=== PATIENT | female | born 1995 | race Two or more races ===

== ENCOUNTER 2017-06-23 17:50 | Emergency (ER) | payer SELFPAY ==
[~2017-06-23] VITALS: Ht 154.9 cm; Wt 131.0 kg
[2017-06-23 18:54] VITALS: BP 135/75
[2017-06-23 19:25] LABS: HEMATOCRIT 34.7 % (36.0-46.0); HEMOGLOBIN 12.1 G/DL (11.9-15.5); MCH 33.2 PG (29.0-34.0); MCHC 34.9 G/DL (30.0-36.0); MCV 95.1 FL (83-99); PLATELET COUNT 264 K/uL (156-360); RBC DIS.WIDTH-SD 41.6 % (39-53); RED BLOOD COUNT 3.65 M/uL (3.80-5.20); WHITE BLOOD COUNT 10.4 K/uL (4.1-10.2)
[2017-06-23 19:39] LABS: ALBUMIN 3.5 g/dL (3.2-4.8)
[2017-06-23 19:40] LABS: CHLORIDE 106 mEq/L (99-109); POTASSIUM 3.8 mEq/L (3.7-5.4); SODIUM 135 mEq/L (136-147)
[2017-06-23 19:42] LABS: GLUCOSE 81 mg/dL (70-99); TOTAL PROTEIN 7.1 g/dL (6.4-8.3)
[2017-06-23 19:44] LABS: TOTAL BILIRUBIN 0.3 mg/dL (0.0-1.0)
[2017-06-23 19:45] LABS: ALKALINE PHOSPHATASE 43 IU/L (3-129)
[2017-06-23 19:46] LABS: CREATININE 0.5 mg/dL (0.6-1.3); GFR ESTIMATE (CALCULATED) > 59 mL/min/
[2017-06-23 19:47] LABS: AST (GOT) 15 IU/L (2-34); UREA NITROGEN (BUN) 5 mg/dL (9-23)
[2017-06-23 19:49] LABS: ALT (GPT) 14 IU/L (3-49)
[2017-06-23 20:11] LABS: QUANTITATIVE HCG 53539.8 MIU/ML
== END 2017-06-23 20:18 | disposition left against medical advice (07) ==
LOC: EME 17:50
DX: O26.891 Other specified pregnancy related conditions, first trimester (principal); R25.2 Cramp and spasm; Z3A.14 14 weeks gestation of pregnancy; Z53.21 Procedure and treatment not carried out due to patient leaving prior to being seen by health care provider
CPT/HCPCS: 80053; 81003; 84702; 85027

== ENCOUNTER 2017-07-23 11:24 | Emergency (ER) | payer OTHER ==
[~2017-07-23] VITALS: Ht 154.9 cm; Wt 130.4 kg
[2017-07-23 12:37] LABS: HEMATOCRIT 34.3 % (36.0-46.0); MCH 34.1 PG (29.0-34.0); MCV 97.4 FL (83-99); PLATELET COUNT 254 K/uL (156-360); RBC DIS.WIDTH-CV 12.1 % (11.8-14.6); RBC DIS.WIDTH-SD 42.8 % (39-53); RED BLOOD COUNT 3.52 M/uL (3.80-5.20); WHITE BLOOD COUNT 11.8 K/uL (4.1-10.2)
[2017-07-23 12:50] LABS: ALBUMIN 3.5 g/dL (3.2-4.8); CHLORIDE 107 mEq/L (99-109); POTASSIUM 4.2 mEq/L (3.7-5.4); SODIUM 137 mEq/L (136-147)
[2017-07-23 12:52] LABS: GLUCOSE 79 mg/dL (70-99); TOTAL PROTEIN 6.9 g/dL (6.4-8.3)
[2017-07-23 12:54] LABS: TOTAL BILIRUBIN 0.4 mg/dL (0.0-1.0)
[2017-07-23 12:56] LABS: ALKALINE PHOSPHATASE 58 IU/L (3-129); CREATININE 0.6 mg/dL (0.6-1.3); GFR ESTIMATE (CALCULATED) > 59 mL/min/
[2017-07-23 12:57] LABS: UREA NITROGEN (BUN) 5 mg/dL (9-23)
[2017-07-23 12:58] LABS: AST (GOT) 15 IU/L (2-34)
[2017-07-23 12:59] LABS: ALT (GPT) 15 IU/L (3-49)
[2017-07-23 13:22] LABS: QUANTITATIVE HCG 44870.9 MIU/ML
[2017-07-23 13:30] LABS: APPEARANCE SL.HAZY ((CLEAR)); BILIRUBIN NEGATIVE; BLOOD NEGATIVE; COLOR YELLOW ((YELLOW)); GLUCOSE (STRIP) NEGATIVE; KETONES 20; LEUKOCYTES NEGATIVE; NITRITE NEGATIVE; PROTEIN (STRIP) NEGATIVE; SPECIFIC GRAVITY 1.018 (1.000-1.030)
[2017-07-23 13:44] LABS: BACTERIA RARE /HPF; EPITHELIAL CELLS 1+ /HPF; MUCUS TRACE /LPF; RED BLOOD CELLS 0-5 /HPF (0-5); UCUL ADDED? NO; WHITE BLOOD CELLS 0-5 /HPF (0-5)
[2017-07-23 17:52] VITALS: BP 120/71
== END 2017-07-23 17:53 | disposition home or self-care (01) ==
LOC: EME 11:24
DX: O26.892 Other specified pregnancy related conditions, second trimester (principal); R10.2 Pelvic and perineal pain; Z3A.19 19 weeks gestation of pregnancy
CPT/HCPCS: 76805; 80053; 81003; 84702; 85027; 99281; 99284

== ENCOUNTER 2017-12-17 04:01 | Emergency (ER) | payer OTHER ==
[~2017-12-17] VITALS: Ht 154.9 cm; Wt 136.7 kg
[2017-12-17 04:52] LABS: APPEARANCE CLOUDY ((CLEAR)); BILIRUBIN NEGATIVE; BLOOD LARGE; GLUCOSE (STRIP) NEGATIVE; KETONES NEGATIVE; LEUKOCYTES LARGE; NITRITE NEGATIVE; PROTEIN (STRIP) 100; SPECIFIC GRAVITY 1.014 (1.000-1.030); UROBILINOGEN 0.2 MG/DL (0.2-1.0)
[2017-12-17 04:59] LABS: BACTERIA RARE /HPF; EPITHELIAL CELLS 2+ /HPF; MUCUS TRACE /LPF; RED BLOOD CELLS TNTC /HPF (0-5); UCUL ADDED? YES; WHITE BLOOD CELLS TNTC /HPF (0-5)
[2017-12-17 05:03] LABS: BASOPHIL (%) 0.4 % (0-1); EOSINOPHIL (%) 1.2 % (0-5); EOSINOPHIL COUNT 0.1 K/uL (0-0.3); HEMATOCRIT 28.2 % (36.0-46.0); HEMOGLOBIN 9.3 G/DL (11.9-15.5); IMMATURE GRANULOCYTE (%) 0.5 % (0.0-0.7); LYMPHOCYTE (%) 33.2 % (15-42); LYMPHOCYTE COUNT 2.7 K/uL (1.0-2.8); MCH 32.6 PG (29.0-34.0); MCV 98.9 FL (83-99); MONOCYTE (%) 6.1 % (3-12); MONOCYTE COUNT 0.5 K/uL (0-0.8); NEUTROPHIL (%) 58.6 % (45-76); NEUTROPHIL COUNT 4.7 K/uL (1.8-6.4); PLATELET COUNT 283 K/uL (156-360); RBC DIS.WIDTH-CV 12.5 % (11.8-14.6); RBC DIS.WIDTH-SD 45.5 % (39-53); RED BLOOD COUNT 2.85 M/uL (3.80-5.20); WHITE BLOOD COUNT 8.1 K/uL (4.1-10.2)
[2017-12-17 05:09] LABS: COLOR LT.RED ((YELLOW))
[2017-12-17 05:18] LABS: ALBUMIN 3.2 g/dL (3.2-4.8); CHLORIDE 111 mEq/L (99-109); POTASSIUM 3.9 mEq/L (3.7-5.4); SODIUM 146 mEq/L (136-147)
[2017-12-17 05:21] LABS: GLUCOSE 84 mg/dL (70-99); TOTAL PROTEIN 5.8 g/dL (6.4-8.3)
[2017-12-17 05:23] LABS: TOTAL BILIRUBIN 0.3 mg/dL (0.0-1.0)
[2017-12-17 05:24] LABS: ALKALINE PHOSPHATASE 82 IU/L (3-129); CREATININE 0.6 mg/dL (0.6-1.3); GFR ESTIMATE (CALCULATED) > 59 mL/min/
[2017-12-17 05:25] LABS: UREA NITROGEN (BUN) 9 mg/dL (9-23)
[2017-12-17 05:26] LABS: AST (GOT) 15 IU/L (2-34)
[2017-12-17 05:27] LABS: ALT (GPT) 18 IU/L (3-49)
[2017-12-17 05:33] LABS: TROP-I INTERPRETATION NEGATIVE; TROPONIN-I < 0.01 ng/mL (0.0-0.30)
[2017-12-17 05:40] LABS: PTT 29.3 SEC (25-37)
[2017-12-17 09:03] VITALS: BP 136/79
== END 2017-12-17 09:08 | disposition home or self-care (01) ==
LOC: EME → EDBD 04:01 → EME 04:01
PROVIDERS: Emergency Medicine
DX: O90.89 Other complications of the puerperium, not elsewhere classified (principal); R60.0 Localized edema; R07.9 Chest pain, unspecified
CPT/HCPCS: 71046; 71275; 80053; 81003; 84484; 85025; 85379; 85610; 85730; 87086; 93005; 93970; 99281; 99285